=== PATIENT | female | born 1990 | race Two or more races ===

== ENCOUNTER → 2019-01-19 | Outpatient (CLI) | payer SELFPAY | END | disposition home or self-care (01) | LOC: Rad HDHVI 09:16 | PROVIDERS: ATTEND Internal Medicine | DX: I34.8 Other nonrheumatic mitral valve disorders (principal); I10 Essential (primary) hypertension | CPT/HCPCS: 93306 ==

== ENCOUNTER → 2019-02-10 | Outpatient (CLI) | payer SELFPAY ==
[~2019-02-10] VITALS: Ht 163.8 cm; Wt 72.1 kg
== END | disposition home or self-care (01) ==
LOC: Rad HDHVI 13:58
PROVIDERS: ATTEND Internal Medicine
DX: R07.89 Other chest pain (principal); I10 Essential (primary) hypertension
CPT/HCPCS: 93017